=== PATIENT | female | born 1965 | race Caucasian/White ===

== ENCOUNTER 2019-10-28 15:41 | Outpatient (CLI) | payer BC, SELFPAY ==
--- NOTE | ~2019-10-28 | MM_ITS ---
EXAMINATION: MM screening [facility] BI w bulmaro HISTORY: Screening mammogram TECHNIQUE: Craniocaudal and mediolateral oblique 3-D tomosynthesis images were obtained and synthetic 2-D images were generated. CAD analysis was submitted and interpreted. COMPARISON: 10/15/2018, 10/31/2016, 04/06/2007 BREAST PARENCHYMAL COMPOSITION: There are scattered areas of fibroglandular density. FINDINGS: There is no evidence of suspicious mass, calcification, or architectural distortion to sugg est malignancy in either breast. There has been no suspicious interval change. IMPRESSION: 1. No mammographic evidence of malignancy. 2. Recommend routine screening mammography in one year. BI-RADS Category 1: Negative Reviewed, dictated and finalized at location A.
== END 2019-10-28 15:42 | disposition home or self-care (01) ==
LOC: ANHIMG 15:44
PROVIDERS: PCP Family Medicine; Visit Provider Family Medicine
DX: Z12.31 Encounter for screening mammogram for malignant neoplasm of breast (principal)
CPT/HCPCS: 77063; 77067

== ENCOUNTER 2021-12-25 00:11 | Day surgery (SDC) | payer BC, SELFPAY ==
[2021-12-12 11:48] VITALS: BMI 32.0
[2021-12-25 07:26] VITALS: BP 142/80; PULSE 94; RESP 16; TEMP 36.4; O2SAT 99
[2021-12-25] MEDS: LACTATED RINGERS 1,000 ML 150 ML IV CONT (07:29)
--- NOTE | 2021-12-25 07:49 | WPDANESEPPF ---
Anes - Initial Pre Proc Eval Procedure: Operation Date: 12/25/21 08:45 Proposed Procedures p Screening Colonoscopy - Amador Orosco MD Date/Time: 12/25/21 07:49 Surgeon: Amador Orosco MD Pre Op Diagnosis: hx of colon polyps, neoplasm screening Patient Data Age: 56 Gender: F Height: 1.6 m Weight: 81 kg Last Vital Signs Temp 36.4 C 12/25/21 07:26 Pulse 94 12/25/21 07:26 Resp 16 12/25/21 07:26 BP 142/80 H 12/25/21 07:26 Pulse Ox 99 12/25/21 07:26 O2 Del Method Room Air 12/25/21 07:26 Allergies Allergy/AdvReac Type Severity Reaction Status Date / Time No Known Allergies Allergy Verified 12/25/21 07:25 Home Medications Medication Instructions Recorded Confirmed Type levothyroxine 100 mcg tablet 1 tablet PO DAILY 12/12/21 12/25/21 History (Synthroid) Patient hx anesthesia problems: none Family hx anesthesia problems: none Results Review: All pre-operative results and documents have been reviewed as part of the pre-operative evaluation. [facility] Past Medical History Medical History Hypothyroidism Obesity Smoker Surgical History Surgical History (Updated 12/25/21 @ 07:51 by Cordell Templeton MD) H/O: hysterectomy History of section Social History Social History Smoking packs per day: 0.5 Smoking cigarettes per day: 10.0 Years smoked: 40 Smoking pack-years: 20.00 Smoking status: Current every day smoker Tobacco type: cigarettes Alcohol intake: never Substance use: never Substance use type: does not use Living arrangements: with family Spiritual care concerns: No Anes - Eval Final PreProcedure Day of Procedure 12/25/21 07:49 Patient weight: obese Heart: regular rate and rhythm Lungs: clear to auscultation Airway: Mallampati scale class II Neurological: alert and oriented ASA classification: III Emergent: no Anesthetic plan: proceed Anesthesia type and monitoring: general GIVS and standard monitoring Results Review: All pre-operative results and documents have been reviewed as part of the pre-operative evaluation. Informed Consent: The patient's anesthetic plan and its attendant risks and benefits were discussed with the patient/family/POA. Questions were solicited and answers provided to the satisfaction of the patient/family/POA.
--- NOTE | 2021-12-25 08:27 | P.HP_ITS ---
H&P: HPI History of Present Illness Date/Time: 12/25/21 08:27 Chief Complaint: History of colon polyp Narrative: this is a 56-year-old white female patient presents for screening colonoscopy. Patient has a history of adenomatous colon polyp removed from the colon 2016. Patient reports her current weight appetite and bowel movements are normal. She denies abdominal pain. She has had no bleeding. Family history is noncontributory. Review of Systems Review of Systems: Review of systems noncontributory. [facility] Past Medical History Medical History Hypothyroidism Obesity Smoker Surgical History Surgical History (Updated 12/25/21 @ 07:51 by Cordell Templeton MD) H/O: hysterectomy History of section Social History Social History Smoking packs per day: 0.5 Smoking cigarettes per day: 10.0 Years smoked: 40 Smoking pack-years: 20.00 Smoking status: Current every day smoker Tobacco type: cigarettes Alcohol intake: never Substance use: never Substance use type: does not use Living arrangements: with family Spiritual care concerns: No Meds Home Medications and Allergies Home Medications Medication Instructions Recorded Confirmed Type levothyroxine 100 mcg tablet 1 tablet PO DAILY 12/12/21 12/25/21 History (Synthroid) Allergies Allergy/AdvReac Type Severity Reaction Status Date / Time No Known Allergies Allergy Verified 12/25/21 07:25 Vital Signs Vital Signs - 24 hr 12/25/21 07:26 Temperature 97.6 F Pulse Rate 94 Respiratory Rate 16 Blood Pressure 142/80 H Pulse Oximetry 99 Oxygen Delivery Room Air Exam Narrative: Physical exam reveals patient to be alert. Vital signs stable. HEENT exam is unremarkable. Patient is anicteric. Lungs are clear to auscultation and percussion. Heart is without murmur or extra sounds. Abdominal exam bowel sounds are present soft nontender with no organomegaly. Digital external rectal exam is normal. Assessment and Plan Assessment and plan (1) History of colon polyps: Code(s): Z86.010 - Personal history of colonic polyps Status: Acute Assessment and Plan: Patient has a history of a benign adenomatous colon polyp removed from the colon 2016. Plan is for surveillance colonoscopy now and consider this at intervals in the future.
[2021-12-25] MEDS: SIMETHICONE ORAL SUSPENSION 20 MG/0.3 ML 30 ML BOTTLE 0.6 ML IRRIGATION (09:24)
[2021-12-25 09:46] VITALS: BP 120/61; PULSE 92; RESP 26; O2SAT 100
[2021-12-25 09:56] VITALS: BP 118/67; PULSE 77; RESP 22; O2SAT 100
[2021-12-25 10:06] VITALS: BP 114/71; PULSE 73; RESP 30; O2SAT 100
== END 2021-12-25 10:09 | disposition home or self-care (01) ==
PROVIDERS: PCP Family Medicine; Visit Provider Internal Medicine Gastroenterology
PROC: 0DJD8ZZ Inspection of Lower Intestinal Tract, Via Natural or Artificial Opening Endoscopic (ICD-10-PCS; CPT 45378; principal; 2021-12-25 08:45)
DX: Z12.11 Encounter for screening for malignant neoplasm of colon (principal); K63.5 Polyp of colon; E03.9 Hypothyroidism, unspecified; F17.210 Nicotine dependence, cigarettes, uncomplicated; E66.9 Obesity, unspecified; Z68.31 Body mass index [BMI] 31.0-31.9, adult
CPT/HCPCS: 45385; 88305; J2704; J7120

== ENCOUNTER 2022-01-11 14:54 | Outpatient (CLI) | payer BC, SELFPAY ==
--- NOTE | ~2022-01-11 | MM_ITS ---
EXAMINATION: MM screening [facility] BI w bulmaro HISTORY: Screening mammogram TECHNIQUE: Craniocaudal and mediolateral oblique 3-D tomosynthesis images were obtained and synthetic 2-D images were generated. CAD analysis was submitted and interpreted. COMPARISON: 10/20/2019, 10/15/2018, 10/31/2016 BREAST PARENCHYMAL COMPOSITION: There are scattered areas of fibroglandular density. FINDINGS: There is no suspicious mass, calcification, or architectural distortion to suggest malignan cy in either breast. There has been no suspicious interval change. IMPRESSION: 1. No mammographic evidence of malignancy. 2. Recommend routine screening mammography in one year. BI-RADS Category 1: Negative Reviewed, dictated and finalized at location A.
== END 2022-01-11 14:55 | disposition home or self-care (01) ==
LOC: ANHIMG 14:58
PROVIDERS: PCP Family Medicine; Visit Provider Physician Assistant
DX: Z12.31 Encounter for screening mammogram for malignant neoplasm of breast (principal)
CPT/HCPCS: 77063; 77067

== ENCOUNTER → 2023-04-01 13:42 | Outpatient (CLI) | payer BC, SELFPAY ==
--- NOTE | ~2023-04-01 | MM_ITS ---
EXAMINATION: MM screening [facility] BI w bulmaro HISTORY: Screening mammogram TECHNIQUE: Craniocaudal and mediolateral oblique 3-D tomosynthesis images were obtained and synthetic 2-D images were generated. CAD analysis was submitted and interpreted. COMPARISON: 01/11/2022, 10/28/2019, 10/15/2018 BREAST PARENCHYMAL COMPOSITION: The breasts are heterogeneously dense, which may obscure small masses . FINDINGS: RIGHT BREAST: No suspicious mass, calcification, or architectural distortion are identified to sugges t malignancy. There has been no suspicious interval change. LEFT BREAST: There is an asymmetry in the far posterior third of the breast best appreciated in line with the nipple axis 10 cm from the nipple on the mediolateral oblique view. IMPRESSION: 1. Left breast asymmetry. 2. Additional mammographic views and possible breast ultrasound are recommended. BI-RADS Category 0: Incomplete: Needs additional imaging evaluation. Reviewed, dictated and finalized at location A. IMPRESSION: 1. Left breast asymmetry. 2. Additional mammographic views and possible breast ultrasound are recommended . BI-RADS Category 0: Incomplete: Needs additional imaging evaluation.
== END ==
PROVIDERS: PCP Family Medicine; Visit Provider Family Medicine
DX: Z12.31 Encounter for screening mammogram for malignant neoplasm of breast (principal); R92.8 Other abnormal and inconclusive findings on diagnostic imaging of breast
CPT/HCPCS: 77063; 77067

== ENCOUNTER 2023-04-30 12:44 | Outpatient (CLI) | payer BC, SELFPAY ==
--- NOTE | ~2023-04-30 | MMUS_ITS ---
EXAMINATION: MM diagnostic [facility] LT w bulmaro, US breast LT limited HISTORY: Mammographic asymmetry reported in far posterior third of the breast in line with the nipple axis on screening MLO view of 04/01/2023 TECHNIQUE: Additional 3-D tomosynthesis images of the left breast were performed and synthetic 2-D im ages were generated. CAD analysis was submitted and interpreted. High resolution targeted left breast ultrasound was performed. COMPARISON: 04/01/2023 bilateral screening mammogram FINDINGS: MAMMOGRAPHIC FINDINGS: Approximately 3.7 x 5.9 mm circular opacity is noted posteriorly in the outer mid left breast. ULTRASOUND: Left breast 3:00: Parallel circumscribed hypoechoic 4 x 6 x 8 mm opacity without internal vascularity or posterior shadowing, benign in appearance. IMPRESSION: 1. Benign finding 2. Routine annual mammographic screening is recommended BI-RADS Category 2: Benign finding(s). Reviewed, dictated and finalized at location A. RICT ADMINISTRATIVE ASSISTANT IMPRESSION: 1. Benign finding 2. Routine annual mammographic screening is recommended BI-RADS Category 2: Benign finding(s).
== END 2023-04-30 12:45 | disposition home or self-care (01) ==
LOC: ANHIMG 12:45
PROVIDERS: PCP Family Medicine; Visit Provider Family Medicine
DX: R92.8 Other abnormal and inconclusive findings on diagnostic imaging of breast (principal)
CPT/HCPCS: 76642; 77061; 77065; G0279

== ENCOUNTER 2024-04-27 07:50 | Outpatient (CLI) | payer BC, SELFPAY ==
--- NOTE | ~2024-04-27 | MMUS_ITS ---
EXAMINATION: US breast LT limited, MM diagnostic [facility] LT w bulmaro HISTORY: Left breast mass TECHNIQUE: Additional 3-D tomosynthesis images of the left breast were performed and synthetic 2-D im ages were generated. CAD analysis was submitted and interpreted. High resolution Limited left breast ultrasound was performed. COMPARISON: Comparison to multiple prior studies sequentially, with oldest reviewed study dated 10/15. BREAST PARENCHYMAL COMPOSITION: Not dense: There are scattered areas of fibroglandular density. FINDINGS: MAMMOGRAPHIC FINDINGS: Stable low-density mass upper outer quadrant of the left breast posteriorly, consistent with benign m ass. ULTRASOUND: Limited left breast ultrasound: At 3:00, 5 cm from the nipple there is an oval hypoechoic 5 mm mass w ith posterior acoustic enhancement, circumscribed margins, no internal vascularity and parallel orien tation, decreased in size compared with prior examination dated 04/30/2023, consistent with benign ma ss. This mass likely corresponds to the mammographic finding. IMPRESSION: 1. Stable benign-appearing 5 mm left breast mass at 3:00, 5 cm from the nipple. No evidence for malig nu in the left breast. 2. Routine yearly screening mammogram and regular clinical breast examination are recommended. BI-RADS Category 2: Benign finding(s). Reviewed, dictated and finalized at location B. RATIVE ENGRAVER APPRENTICE IMPRESSION: 1. Stable benign-appearing 5 mm left breast mass at 3:00, 5 cm from the nipple. No evidence for malignancy in the left breast. 2. Routine yearly screening mammogram and regular clinical breast examination a re recommended. BI-RADS Category 2: Benign finding(s).
== END 2024-04-27 07:51 | disposition home or self-care (01) ==
LOC: MICIMG 07:51
PROVIDERS: PCP Family Medicine; Visit Provider Family Medicine
DX: R92.8 Other abnormal and inconclusive findings on diagnostic imaging of breast (principal)
CPT/HCPCS: 76642; 77061; 77065; G0279

== ENCOUNTER 2024-05-14 01:08 | Day surgery (SDC) | payer BC, SELFPAY ==
[2024-05-04 13:36] VITALS: BMI 31.8
[2024-05-14 11:14] VITALS: BP 135/84; PULSE 83; RESP 17; TEMP 36.2; O2SAT 100
[2024-05-14] MEDS: LACTATED RINGERS 1,000 ML 150 ML IV CONT (11:27)
--- NOTE | 2024-05-14 11:32 | P.PNAN_ITS ---
Anes - Initial Pre Proc Eval Procedure: Operation Date: 05/14/24 12:30 Proposed Procedures p Colonoscopy - Kirby Mei MD Date/Time: 05/14/24 11:32 Surgeon: Kirby Mei MD Pre Op Diagnosis: Hx Colon Polyps Patient Data Age: 59 Gender: F Height: 1.6 m Weight: 85.9 kg Last Vital Signs Temp 36.2 C L 05/14/24 11:14 Pulse 83 05/14/24 11:14 Resp 17 05/14/24 11:14 BP 135/84 05/14/24 11:14 Pulse Ox 100 05/14/24 11:14 O2 Del Method Room Air 05/14/24 11:14 Allergies Allergy/AdvReac Type Severity Reaction Status Date / Time No Known Allergies Allergy Verified 05/14/24 11:11 Home Medications ?Medication ?Instructions ?Recorded ?Confirmed ?Type loratadine 10 mg tablet (Claritin) 10 mg PO DAILY 01/03/23 05/14/24 History levothyroxine 100 mcg tablet 100 mcg PO DAILY #90 tabs 04/21/24 05/14/24 Rx (Synthroid) Patient hx anesthesia problems: none Family hx anesthesia problems: none Results Review: All pre-operative results and documents have been reviewed as part of the pre- operative evaluation. [facility] Past Medical History Medical History Hypothyroidism Smoker Obesity Surgical History Surgical History History of section H/O: hysterectomy Family History Family History Father Hypertension Mother No problems noted. Social History Social History Smoking packs per day: 0.5 Smoking cigarettes per day: 10.0 Years smoked: 40 Smoking pack-years: 20.00 Smoking status: Current every day smoker Tobacco type: cigarettes Alcohol intake: current Drinks per week: 2 Substance use: never Substance use type: does not use Do You Feel Safe in your Home?: Yes Lack of Transportation: No Lack of Food: Never True Current Housing: I Have Housing Concerned About Future Housing: No Difficulty Paying Gas/Electric Bills: No Difficulty Paying for Meds: No Currently Unemployed: No Education: Associate Degree Difficulty w/ Childcare or Family Care: No Living arrangements: with family Occupation/Education: occupation Gender identity (if verbalized by the patient): Female Sexual Orientation (if Verbalized by the Patient): Straight or Heterosexual Spiritual care concerns: No Anes - Eval Final PreProcedure Day of Procedure 05/14/24 11:32 Patient weight: obese Heart: regular rate and rhythm Lungs: clear to auscultation Airway: Mallampati scale class II Neurological: alert and oriented Last oral intake: >/= 8 hours ASA classification: III Emergent: no Anesthetic plan: proceed Anesthesia type and monitoring: general GIVS and standard monitoring Results Review: All pre-operative results and documents have been reviewed as part of the pre- operative evaluation. Informed Consent: The patient's anesthetic plan and its attendant risks and benefits were discussed with the patient/family/POA. Questions were solicited and answers provided to the satisfaction of the patient/family/POA.
--- NOTE | 2024-05-14 11:41 | PM.HPGS ---
History of Present Illness History of Present Illness Consent: Risks, benefits, and alternatives have been discussed and questions answered. Patient agrees to proceed with procedure. Chief complaint: Hx Colon Polyps Narrative: Belinda Meyer is a 59 year old female with colon polyp 2 years ago Review of Systems Review of Systems: All systems reviewed & are unremarkable except as noted in HPI and below PMFSH Past Medical History Medical History Hypothyroidism Smoker Obesity Surgical History Surgical History History of section H/O: hysterectomy Family History Family History Father Hypertension Mother No problems noted. Social History Social History Smoking packs per day: 0.5 Smoking cigarettes per day: 10.0 Years smoked: 40 Smoking pack-years: 20.00 Smoking status: Current every day smoker Tobacco type: cigarettes Alcohol intake: current Drinks per week: 2 Substance use: never Substance use type: does not use Do You Feel Safe in your Home?: Yes Lack of Transportation: No Lack of Food: Never True Current Housing: I Have Housing Concerned About Future Housing: No Difficulty Paying Gas/Electric Bills: No Difficulty Paying for Meds: No Currently Unemployed: No Education: Associate Degree Difficulty w/ Childcare or Family Care: No Living arrangements: with family Occupation/Education: occupation Gender identity (if verbalized by the patient): Female Sexual Orientation (if Verbalized by the Patient): Straight or Heterosexual Spiritual care concerns: No Meds Home Medications and Allergies Home Medications ?Medication ?Instructions ?Recorded ?Confirmed ?Type loratadine 10 mg tablet (Claritin) 10 mg PO DAILY 01/03/23 05/14/24 History levothyroxine 100 mcg tablet 100 mcg PO DAILY #90 tabs 04/21/24 05/14/24 Rx (Synthroid) Allergies Allergy/AdvReac Type Severity Reaction Status Date / Time No Known Allergies Allergy Verified 05/14/24 11:11 Vital Signs Vital Signs - 24 hr 05/14/24 11:14 Temperature 97.1 F L Pulse Rate 83 Respiratory Rate 17 Blood Pressure 135/84 Pulse Oximetry 100 Oxygen Delivery Room Air Exam Const: General: comfortable and no acute distress HENMT: Face/Nose/Sinus: Normal nares present Eyes: General: appearance normal, both eyes and all related structures Neck: Neck: no JVD Resp: Auscultation: clear to auscultation bilaterally Cardio: Rate: regular rate Rhythm: regular rhythm GI: Inspection: non-distended GI Palp: Yes Soft to palpation Skin: General skin exam: normal color Neuro: General: gait normal Speech: normal speech Extrem: General: normal to inspection Psych: Mental Status: mental status grossly normal Assessment and Plan Assessment and plan (1) History of colon polyps: Code(s): Z86.010 - Personal history of colon polyps Status: Acute Assessment and Plan: colonoscopy
[2024-05-14 12:06] VITALS: BP 122/51; PULSE 88; RESP 20; O2SAT 99
[2024-05-14 12:16] VITALS: BP 110/59; PULSE 76; RESP 22; O2SAT 98
[2024-05-14 12:26] VITALS: BP 127/66; PULSE 68; RESP 21; O2SAT 99
== END 2024-05-14 12:32 | disposition home or self-care (01) ==
PROVIDERS: PCP Family Medicine; Visit Provider Internal Medicine Gastroenterology
PROC: 0DJD8ZZ Inspection of Lower Intestinal Tract, Via Natural or Artificial Opening Endoscopic (ICD-10-PCS; CPT 45378; principal; 2024-05-14 12:30)
DX: Z12.11 Encounter for screening for malignant neoplasm of colon (principal); K63.5 Polyp of colon; E03.9 Hypothyroidism, unspecified; F17.210 Nicotine dependence, cigarettes, uncomplicated; E66.9 Obesity, unspecified; Z68.33 Body mass index [BMI] 33.0-33.9, adult
CPT/HCPCS: 45380; 45385; 88305; J2704; J7120

== ENCOUNTER 2025-02-22 13:59 | Outpatient (CLI) | payer BC, SELFPAY ==
--- NOTE | ~2025-02-22 | XR_ITS ---
EXAMINATION: XR wrist LT min 3V, 02/22/2025 14:08 CDT HISTORY: S69.90XA - Unspecified injury of unspecified wrist, hand ... COMPARISON: No comparisons available. Findings: No acute fracture or malalignment. No significant degenerative changes. Soft tissues unremarkable. Impression: No acute fracture or malalignment. Reviewed, dictated and finalized at location A. Impression: No acute fracture or malalignment.
--- OUTSIDE RECORDS SUMMARY | 2025-02-22 14:13 | XMS_ITS | Clinical Summary ---
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 Gender Identity Not on file Sexual Orientation Not on file Plan of Treatment Health Maintenance Due Date Last Done Comments HPV/Cotest (21-29) 02/28/1984 CERVICAL CANCER SCREENING 1993 HPV/Cotest (30-65) 1993 PAP SMEAR 1993 COLORECTAL SCREENING 02/28/2008 Colorectal Cancer Screening 02/28/2008 FIT-DNA Q 3 years 02/28/2008 FIT/FOBT Q 1 year 02/28/2008 Flex Sig/CT Colonography Q 5 years 02/28/2008 BREAST CANCER SCREENING 09/07/2009 09/07/2008 ZOSTER VACCINE (1 of 2) 2013 DTAP/TDAP/TD VACCINES (2 - T d or Tdap) 10/03/2024 10/03/2014 INFLUENZA VACCINE (#1) 2024 5, 02/22/2015, 03/17/2014 RSV VACCINE (60+ or ) (1 - 1-dose 75+ series) 2038 Procedures Procedure Name Priority Date/Time Associated Diagnosis Comments MAMMO SCREENING BILAT Routine 09/07/2008 4:59 PM CDT from Last 3 Months or Most Recently Relevant to Health Maintenance Results * MAMMO SCREENING BILAT (09/07/2008 4:59 PM CDT) Anatomical Region Laterality Modality Breast Bilateral Other 09/07/2008 4:59 PM CDT Narrative 09/30/2008 10:57 AM CDT [facility] [address] [place], [place] [address] Admit Date: 09/07/2008 MARLEEN SULTANA Sex: F Admit Prov: OMAR Date: 1965 Primary Care Prov: CMRN: [id number] Room: [facility] SSN: [id number] IMAGING SERVICES Ordering Prov: , OMAR ONSTANAVDEEP Accession Number: [id number] Addendum Since the prior report, the patient's previous mammograms from [facility] have become available for review. These are dated 04/06/07. Current study shows 2 benign appearing nodules in the left breast. These have not significantly changed. There is no evidence of malignancy. IMPRESSION: Stable nodules in the left breast, unchanged since April 2007 No mammographic evidence of malignancy Recommendations: The patient should resume screening mammography in August 2009 Overall assessment: BIRADS category 2 - Benign findings Assessment BIRADS: 2-Benign finding Recommendation: Normal interval follow-up Dictated by: DOMINGO WOOD Electronically signed by: DOMINGO WOOD 09/30/2008 10:57 Transcribed: 09/30/2008 08:33 AMK Interpretation BILATERAL SCREENING MAMMOGRAMS, 09/07/2008 Reason For Examination: Routine screening study. Findings: The parenchyma is moderately dense bilaterally. There are no abnormalities on the right. There is one, and possibly two nodules in the left breast. One is clearly seen laterally on the cephalocaudal view and the other is seen clearly in the inferior left breast on the oblique view. These could represent one nodule or two separate nodules. There is no spiculation or malignant calcification. Neither one of the nodules measures more than 8 mm in size. Conclusion: Nonspecific nodules in the left breast. Recommendations: [facility] will send for the patient's previous mammograms from [place] for comparison. BI-RADS Category: 0, incomplete, awaiting old films. Report revised on 09/30/2008 10:57:05 AM by DOMINGO WOOD Assessment BIRADS: 0-Incomplete: Need additional imaging evaluation Recommendation: Old films for comparison Dictated by: DOMINGO WOOD Electronically signed by: DOMINGO WOOD 09/08/2008 14:40 Transcribed: 09/08/2008 12:13 DKT Procedure Note Domingo Wood MD - 09/30/2008 [facility] [address] [place], [place] [address] Admit Date: 09/07/2008 MARLEEN SULTANA Sex: F Admit Prov: DOCTOR , NOT ONSTAFF Date: 1965 Primary Care Prov: CMRN: [id number] Room: [facility] SSN: [id number] IMAGING SERVICES Ordering Prov: DOCTOR , NOT ONSTAFF Addendum Since the prior report, the patient's previous mammograms from [facility] have become available for review. Theseare dated 04/06/07. Current study shows 2 benign appearing nodules in the left breast.These have not significantly changed. There is no evidence of malignancy. IMPRESSION: Stable nodules in the left breast, unchanged sinceApril 2007 No mammographic evidence of malignancy Recommendations: The patient should resume screening mammography inApril 2010 Overall assessment: BIRADS category 2 - Benign findings Assessment BIRADS: 2-Benign finding Recommendation: Normal interval follow-up Dictated by: DOMINGO WOOD Electronically signed by: DOMINGO WOOD 09/30/2008 10:57 Transcribed: 09/30/2008 08:33 AMK Interpretation BILATERAL SCREENING MAMMOGRAMS, 09/07/2008 Reason For Examination: Routine screening study. Findings: The parenchyma is moderately dense bilaterally. There areno abnormalities on the right. There is one, and possibly two nodules in the left breast. One isclearly seen laterally on the cephalocaudal view and the other is seenclearly in the inferior left breast on the oblique view. These could representone nodule or two separate nodules. There is no spiculation ormalignant calcification. Neither one of the nodules measures more than 8 mm insize. Conclusion: Nonspecific nodules in the left breast. Recommendations: [facility] will send for the patient'sprevious mammograms from [place] for comparison. BI-RADS Category: 0, incomplete, awaiting old films. Report revised on 09/30/2008 10:57:05 AM by DOMINGO WOOD Assessment BIRADS: 0-Incomplete: Need additional imagingevaluation Recommendation: Old films for comparison Dictated by: DOMINGO WOOD Electronically signed by: DOMINGO WOOD 09/08/2008 14:40 Transcribed: 09/08/2008 12:13 DKT us History Conversion MAMMO ORDERABLES Edited from Last 3 Months or Most Recently Relevant to Health Maintenance
--- OUTSIDE RECORDS SUMMARY | 2025-02-22 14:13 | XMS_ITS | Encounter Summary ---
Author Organization [facility] Address 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 Gender Identity Not on file Sexual Orientation Not on file documented as of this encounter Plan of Treatment Not on file documented as of this encounter Procedures Procedure Name Priority Date/Time Associated Diagnosis Comments MAMMO SCREENING BILAT Routine 09/07/2008 4:59 PM CDT documented in this encounter Results * MAMMO SCREENING BILAT (09/07/2008 4:59 PM CDT) Anatomical Region Laterality Modality Breast Bilateral Other 09/07/2008 4:59 PM CDT Narrative 09/30/2008 10:57 AM CDT [address] [address] Admit Date: 09/07/2008 MARLEEN SULTANA Sex: F Admit Prov: OMAR VALENZUELA ONSTAFF Date: 1965 Primary Care Prov: CMRN: [id number] [id number] Ordering Prov: OMAR VALENZUELA ONSTAFF Accession Number: [id number] Addendum Since the prior report, the patient's previous mammograms from [facility] have become available for review. These [...] Nonspecific nodules in the left breast. Recommendations: [facility] will send for the patient's previous mammograms from [place] for comparison. BI-RADS Category: 0, incomplete, awaiting old films. Report revised on 09/30/2008 10:57:05 AM by DOMINGO WOOD Assessment BIRADS: 0-Incomplete: Need additional imaging evaluation Recommendation: Old films for comparison Dictated by: DOMINGO WOOD Electronically signed by: DOMINGO WOOD 09/08/2008 14:40 Transcribed: 09/08/2008 12:13 DKT Procedure Note Domingo Wood MD - 09/30/2008 [id number] [place], [place] [address] Admit Date: 09/07/2008 MARLEEN SULTANA Sex: F Admit Prov: OMAR VALENZUELA Date: 1965 Primary Care Prov: CMRN: [id number] Room: [facility] SSN: [address] [place] [address] IMAGING SERVICES Ordering Prov: DOCTOR OMAR ONSTANAVDEEP Addendum Since the prior report, the patient's previous mammograms from [facility] have become available for review. Theseare [...] Nonspecific nodules in the left breast. Recommendations: [facility] will send for the patient'sprevious mammograms from [place] for comparison. BI-RADS Category: 0, incomplete, awaiting old films. Report revised on 09/30/2008 10:57:05 AM by DOMINGO WOOD Assessment BIRADS: 0-Incomplete: Need additional imagingevaluation Recommendation: Old films for comparison Dictated by: DOMINGO WOOD Electronically signed by: DOMINGO WOOD 09/08/2008 14:40 Transcribed: 09/08/2008 12:13 DKT us History Conversion MAMMO ORDERABLES Edited documented in this encounter Visit Diagnoses Diagnosis Other screening mammogram documented in this encounter
== END 2025-02-22 14:00 | disposition home or self-care (01) ==
PROVIDERS: PCP Family Medicine
DX: S69.90XA Unspecified injury of unspecified wrist, hand and finger(s), initial encounter (principal); W19.XXXA Unspecified fall, initial encounter
CPT/HCPCS: 73110

== ENCOUNTER 2025-04-07 10:51 | Outpatient (CLI) | payer BC, SELFPAY ==
--- NOTE | ~2025-04-07 | MM_ITS ---
EXAMINATION: MM screening gagan BI w bulmaro HISTORY: Screening TECHNIQUE: Craniocaudal and mediolateral oblique 3-D tomosynthesis images were obtained and synthetic 2-D images were generated. CAD analysis was submitted and interpreted. COMPARISON: Comparison to multiple prior studies sequentially, with oldest reviewed study dated , 10/15/2018 BREAST PARENCHYMAL COMPOSITION: There are scattered areas of fibroglandular density. FINDINGS: There is no evidence of suspicious mass, calcification, or architectural distortion to suggest malignancy in either breast. IMPRESSION: 1. No mammographic evidence of malignancy. 2. Recommend routine screening mammography in one year. BI-RADS Category 1: Negative Reviewed, dictated and finalized at location B. 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
== END 2025-04-07 10:52 | disposition home or self-care (01) ==
LOC: MICIMG 10:52
PROVIDERS: PCP Family Medicine; Visit Provider Family Medicine
DX: Z12.31 Encounter for screening mammogram for malignant neoplasm of breast (principal)
CPT/HCPCS: 77063; 77067